=== PATIENT | female | born 1980 | race Hispanic/Latino ===

== ENCOUNTER → 2018-04-03 10:54 | Outpatient (CLI) | payer OTHER, SELFPAY | PROVIDERS: PCP Family Medicine; Visit Provider Family Medicine | DX: M25.561 Pain in right knee (principal) ==

== ENCOUNTER → 2018-04-17 07:59 | Outpatient (CLI) | payer OTHER, SELFPAY ==
--- NOTE | 2018-04-17 | DI.US.S_ITS ---
ULTRASOUND OF LEFT BREAST: 04/17/2018 CLINICAL: Focal left breast pain. Comparison is made to exam dated: 04/17/2018 [facility]. Ultrasound of the left breast was performed on the area of interest. Cabrera scale images of the real-time examination were reviewed. IMPRESSION: NEGATIVE There is no sonographic evidence of malignancy. There is no mammographic or sonographic abnormality seen in the left breast to correspond with the pain, however, clinical followup is recommended. A 1 year screening mammogram is recommended. This exam was interpreted at Station ID: [id number]. Electronically Signed By: Lachelle del cid/greer:04/17/2018 10:52:15 copy to: Job Arenas letter sent: Clinical Evaluation Ultrasound BI-RADS: 1 Negative
--- NOTE | 2018-04-17 | DI.RAD.S_ITS ---
PROCEDURE: XR KNEE RT 3V INDICATIONS: RIGHT KNEE PAIN TECHNIQUE: 3 views of the knee were acquired. COMPARISON: None. FINDINGS: Bones: No fractures or dislocations. No suspicious bony lesions. There are small marginal spurs over the lateral femoral condyle and posterior patella indicating early degenerative change. Soft tissues: No joint effusion. Small oval calcifications in the soft tissues anterior to the patellar tendon. IMPRESSION: 1. No joint effusion or acute bony abnormality. 2. Early degenerative joint disease. Dictated by: Todd Patel M.D. on 04/17/2018 at 10:19 Approved by: Todd Patel M.D. on 04/17/2018 at 10:22
--- NOTE | 2018-04-17 | DI.MG.S_ITS ---
BILATERAL DIGITAL DIAGNOSTIC MAMMOGRAM 3D/2D: 04/17/2018 CLINICAL: Left breast pain. Baseline exam. Family history of breast cancer. No prior exams were available for comparison. There are scattered fibroglandular elements in both breasts. No significant masses, calcifications, or other findings are seen in either breast. IMPRESSION: INCOMPLETE: NEEDS ADDITIONAL IMAGING EVALUATION There is no mammographic abnormality seen in the left breast to correspond with the pain, however, ultrasound is recommended. This exam was interpreted at Station ID: [id number]. NOTE: For mammograms, a report in lay terms will be sent to the patient. Approximately 15% of breast malignancies will not be visualized mammographically. In the management of a palpable breast mass, a negative mammogram must not discourage biopsy of a clinically suspicious lesion. Electronically Signed By: Lachelle del cid/greer:04/17/2018 08:56:09 copy to: Job Arenas letter sent: Additional Imaging Needed ACR BI-RADS Category 0: Incomplete [id number]
== END ==
PROVIDERS: PCP Family Medicine; Visit Provider Nurse Practitioner Family
DX: N64.4 Mastodynia (principal); M25.561 Pain in right knee
CPT/HCPCS: 73562; 76642; 77066; G0279

== ENCOUNTER → 2018-05-27 09:04 | Outpatient (CLI) | payer OTHER, SELFPAY ==
--- NOTE | 2018-05-27 | DI.RAD.S_ITS ---
PROCEDURE: XR ANKLE LT MIN 3V INDICATIONS: LATERAL LEFT ANKLE PAIN TECHNIQUE: 3 views of the ankle were acquired. COMPARISON: None. FINDINGS: Bones: No fractures or dislocations. Ankle mortise is normally aligned. No suspicious bony lesions. Soft tissues: No tibiotalar joint effusion. Achilles tendon appears normal. Lateral swelling. IMPRESSION: Soft tissue swelling, negative for fracture Dictated by: Todd Patel M.D. on 05/27/2018 at 9:29 Approved by: Todd Patel M.D. on 05/27/2018 at 9:31
== END ==
PROVIDERS: PCP Family Medicine; Visit Provider Nurse Practitioner Family
DX: M25.572 Pain in left ankle and joints of left foot (principal)
CPT/HCPCS: 73610

== ENCOUNTER → 2019-07-28 08:24 | Outpatient (CLI) | payer OTHER, SELFPAY ==
--- NOTE | 2019-07-28 | DI.MG.S_ITS ---
BILATERAL DIGITAL SCREENING MAMMOGRAM 3D/2D WITH CAD: 07/28/2019 CLINICAL: Routine screening. Family history of breast cancer. Comparison is made to exam dated: 04/17/2018 mammogram - [facility]. There are scattered fibroglandular elements in both breasts. Current study was also evaluated with a Computer Aided Detection (CAD) system. No significant masses, calcifications, or other findings are seen in either breast. There has been no significant interval change. IMPRESSION: NEGATIVE There is no mammographic evidence of malignancy. A 1 year screening mammogram is recommended. This exam was interpreted at Station ID: [id number]. NOTE: For mammograms, a report in lay terms will be sent to the patient. Approximately 15% of breast malignancies will not be visualized mammographically. In the management of a palpable breast mass, a negative mammogram must not discourage biopsy of a clinically suspicious lesion. Electronically Signed By: Oskar ramires/greer:07/28/2019 15:46:43 copy to: Job Arenas letter sent: Normal Exam ACR BI-RADS Category 1: Negative [id number]
== END ==
PROVIDERS: PCP Student in an Organized Health Care Education/Training Program; Visit Provider Student in an Organized Health Care Education/Training Program
DX: Z13.21 Encounter for screening for nutritional disorder (principal); Z80.3 Family history of malignant neoplasm of breast
CPT/HCPCS: 77063; 77067

== ENCOUNTER → 2019-09-21 08:48 | Outpatient (CLI) | payer OTHER, SELFPAY ==
--- NOTE | 2019-09-21 10:14 | DIET.PN ---
Diabetes Intake: Initial Assessment Assess: Ms. Mayer is a 38 YOF referred for type 2 diabetes. She was diagnosed in 2009 with an HgbA1c > 9.0. She lost 100 lbs x 2 yrs ago through diet and exercise and was able to get A1c down to 5.2. She has been on and off metformin for the last 5 years, complaining of severe side effects including diarrhea and abdominal burning/discomfort. She has not monitored her BG for several years. Admits to stress eating particularly at work. She works in a stressful environment where coworkers regularly bring in treats. Meds: Discontinued Metformin due to side effects Wt: 324lb Ht: 65in BMI: 53.9 (obese class III) Exercise: Weight lifting, [employer]: Altered nutrition related laboratory values related to impaired glucose metabolism, lack of previous exposure to nutrition information as evidenced by pt report, diagnosis of diabetes, previous diet high in refined carbohydrates. Intervention: 1.Completed intake assessment. Discussed barriers to care. 2.Discussed pathophysiology of diabetes. Reviewed A1c and its correlation to blood glucose numbers. Discussed recommended BG ranges. 3.Discussed importance of self-monitoring, how often, and when to check. 4.Reviewed hyper/hypoglycemia and treatment. 5.Reviewed safe disposal of equipment (strip/lancets/insulin needles). 6.Created SMART goals for pt self-care and success. 7.Discussed program curriculum outline and class needs based on individual goals. SMART Goals: 1. Pt would like to lose 15 lb (~5% BW) in the next 3 mo through dietary changes including counting carbohydrate and reading food labels increasing physical activity by walking for 30 min on her lunch break. 2. Pt would like to increase fitness stamina so that she can reach her goal of 27 laps in 5 min in roller derby by increasing her PA to 6 days/week alternating cardiovascular and resistance training. Monitor/Evaluate: Anticipate excellent compliance. Pt will attend full DSME program. Physiology class scheduled for Sep 28.
== END ==
PROVIDERS: PCP Student in an Organized Health Care Education/Training Program; Visit Provider Student in an Organized Health Care Education/Training Program
DX: E11.9 Type 2 diabetes mellitus without complications (principal); E66.9 Obesity, unspecified; Z68.43 Body mass index [BMI] 50.0-59.9, adult; Z71.3 Dietary counseling and surveillance
CPT/HCPCS: G0108

== ENCOUNTER → 2019-09-28 14:08 | Outpatient (CLI) | payer OTHER, SELFPAY ==
--- NOTE | 2019-09-28 16:23 | DIET.PN ---
Diabetes Progress Note Diabetes Physiology: Intervention 1. Diabetes physiology 2. Detecting and treatment of acute and chronic complications 3. Diagnosis of and difference in types of diabetes 4. Self-monitoring and pattern management a. Demonstrate use of glucometer and control testing b. Explain BG results and action to take when out of range. 5. Foot, eye, dental care 6. Medications a. Oral medication classification b. Injectable c. Insulin i. Injection protocol ii. Other delivery methods
== END ==
PROVIDERS: PCP Student in an Organized Health Care Education/Training Program; Visit Provider Student in an Organized Health Care Education/Training Program
DX: E11.9 Type 2 diabetes mellitus without complications (principal); Z71.3 Dietary counseling and surveillance
CPT/HCPCS: G0109

== ENCOUNTER → 2019-10-08 09:53 | Outpatient (CLI) | payer OTHER, SELFPAY | PROVIDERS: PCP Student in an Organized Health Care Education/Training Program; Visit Provider Student in an Organized Health Care Education/Training Program | DX: E11.9 Type 2 diabetes mellitus without complications (principal); Z71.3 Dietary counseling and surveillance | CPT/HCPCS: G0109 ==

== ENCOUNTER → 2019-11-09 14:09 | Outpatient (CLI) | payer OTHER, SELFPAY ==
--- NOTE | 2019-11-09 16:10 | DIET.PN ---
Diabetes: Healthy Eating 1 Intervention: ?Discussed pathophysiology of diabetes and impact of nutrition/diet on blood sugar control.? Discussed fed versus non-fed state.?? ?Reviewed importance of Balance, Variety, and Moderation. ?Discussed the effect of carbohydrates/protein/fat on blood sugar control.? ?Stressed importance of consistent carbohydrate intake at each meal and provided instructions for recommended servings/portions of carbohydrates/protein per meal. Provided educational material. ?Reviewed carbohydrate counting and measuring carbohydrate content via serving sizes and reading nutrition labels.? Provided handouts.?? ?Discussed the difference between simple versus complex carbohydrates and the effect of fiber on blood sugar control.? Discussed various methods to increase fiber content in diet. ?Discussed the plate method for creating more carbohydrate conscious balanced meals. ?Stressed importance of meal timing and not going >4-5 hours between meals. Encouraged adding protein to evening snack to support glucose control overnight. ?Discussed importance of making dietary habits part of lifestyle change.
== END ==
PROVIDERS: PCP Student in an Organized Health Care Education/Training Program; Visit Provider Student in an Organized Health Care Education/Training Program
DX: E11.9 Type 2 diabetes mellitus without complications (principal); Z71.3 Dietary counseling and surveillance
CPT/HCPCS: G0109

== ENCOUNTER 2020-02-28 00:57 | Emergency (ER) | payer OTHER, SELFPAY ==
[2020-02-28 01:08] VITALS: BP 128/72; PULSE 84; RESP 20; TEMP 36.6; O2SAT 99; BMI 53.6
--- NOTE | 2020-02-28 01:17 | DI.RAD.S_ITS ---
PROCEDURE: XR CHEST 1V INDICATIONS: SOB TECHNIQUE: One view of the chest was acquired. COMPARISON: [facility], CT, CT ANGIO CHEST PE PROTOCOL, 02/28/2020, 2:24. FINDINGS: Surgical changes and devices: None. Lungs and pleura: Lungs are clear. No pleural effusions or pneumothorax. Mediastinum: Mediastinal contours appear normal. Heart size is normal. Bones and chest wall: No suspicious bony lesions. Overlying soft tissues appear unremarkable. IMPRESSION: No acute pulmonary process. Dictated by: Jennifer Ga M.D. on 02/28/2020 at 9:01 Approved by: Jennifer Ga M.D. on 02/28/2020 at 9:04
--- NOTE | 2020-02-28 01:26 | ED_ITS ---
HPI - Chest Pain General Chief Complaint: Chest Pain Stated Complaint: severe abd/chest/back pain x24 hours Time Seen by Provider: 02/28/20 00:59 Source: patient Mode of arrival: Ambulatory Limitations: no limitations History of Present Illness HPI narrative: 39F nonsmoker with history of diabetes presents with vague symptoms including chest and back pain with deep breaths. She denies any fever or chills nor recent injury. She has had no recent travel, history of blood clot or cancer. She states the pain is sharp and stabbing and is made worse with a deep breath or motion but not exertion or any others. She is not dizzy nor weak or lightheaded. She has had no nausea or vomiting. She denies any change in bowel habits. She denies any dietary change or change in medications including [id number] supplements. She denies any history of the same. She states that she has episodes where this sharp pain starts in her anterior chest in will sometimes go to right shoulder and sometimes her neck. Related Data Home Medications Medication Instructions Recorded Confirmed cholecalciferol (vitamin D3) 5,000 unit PO #0 11/14/17 09/14/18 desogestrel-ethinyl estradiol 1 tab PO #0 11/14/17 09/14/18 [Reclipsen (28)] metformin [Glucophage] 250 mg AMAC #0 11/14/17 09/14/18 Previous Rx's Medication Instructions Recorded ketorolac 10 mg PO Q6H PRN #14 tab 02/28/20 Allergies Allergy/AdvReac Type Severity Reaction Status Date / Time From DEMEROL Allergy Unknown Uncoded 09/14/18 11:10 Review of Systems Constitutional Constitutional: Denies chills, Denies fatigue, Denies fever(s), Denies frequent falls, Denies lethargy and Denies weakness Eyes Eyes: Denies change in vision, Denies eye discharge, Denies irritation and Denies loss of vision ENT Ears, Nose, Mouth, and Throat: Denies change in voice, Denies dizziness, Denies neck pain, Denies sore throat and Denies throat swelling Cardiovascular Cardiovascular: Reports chest pain, Denies irregular heart rhythm, Denies lightheadedness, Denies palpitations, Denies dyspnea, Denies dyspnea on exertion and Denies orthopnea Respiratory Respiratory: Denies cough, Denies dyspnea, Denies dyspnea on exertion and Denies wheezing Gastrointestinal Gastrointestinal: Denies abdominal pain, Denies change in bowel habits, Denies diarrhea, Denies nausea and Denies vomiting Genitourinary Genitourinary: Denies hematuria, Denies flank pain, Denies urinary incontinence and Denies urinary urgency Musculoskeletal Musculoskeletal: Denies back pain, Denies muscle weakness, Denies neck pain, Denies numbness and Denies tingling Integumentary/Breasts Skin/Breast: Denies pruritus, Denies erythema, Denies rash and Denies wounds Neurologic Neurologic: Denies behavioral changes, Denies confusion, Denies dizziness, Denies frequent falls, Denies loss of vision, Denies numbness, Denies tingling and Denies weakness Psychiatric Psychiatric: Denies anxiety, Denies behavioral changes, Denies confusion, Denies depression, Denies homicidal ideation and Denies suicidal ideation Endocrine Endocrine: Denies fatigue, Denies flushing and Denies palpitations Hematologic/Lymphatic Hematologic/Lymphatic: Denies easy bruising Allergic/Immunologic Allergic/Immunologic: Denies urticaria, Denies throat swelling and Denies wheezing Patient History Social History Smoking Status: Never smoker eating out: 4 or more times/week Type(s) of exercise: weight lifting, resistance training and other Smoking Status: Never smoker alcohol intake frequency: 0-2 drinks per day Substance Use Type: does not use Exam Narrative Exam Narrative: GENERAL: [39] year old patient appears stated age. Well- nourished, well-developed patient, in mild distress. HEAD: Atraumatic. Normocephalic. EYES: Pupils equal round and reactive. Extraocular motions intact. No scleral icterus. No injection or drainage. ENT: Nose without bleeding, purulent drainage. Throat without erythema, tonsillar hypertrophy or exudate. Airway patent. NECK: Trachea midline. Non tender CARDIOVASCULAR: Regular rate and rhythm without murmurs, gallops, or rubs. Anterior chest pain tender to palpation RESPIRATORY: Clear to auscultation. Breath sounds equal bilaterally. No wheezes, rales, or rhonchi. GASTROINTESTINAL: Abdomen soft, non-tender, nondistended. EXTREMITIES: No edema or joint tenderness. BACK: Nontender without deformity or crepitance. No flank tenderness. NEURO: AOx3. SKIN: No rash or erythema of visible areas Initial Vital Signs Initial Vital Signs: Vital Signs Temperature 97.9 F 02/28/20 01:08 Pulse Rate 84 02/28/20 01:08 Respiratory Rate 20 02/28/20 01:08 Blood Pressure 128/72 02/28/20 01:08 Pulse Oximetry 99 02/28/20 01:08 Course Orders Ordered: Discontinued Medications Al Hydrox/Mg Hydrox/Simethicone 20 ml/ Lidocaine HCl 15 ml 0 ml PO NOW ONE Stop: 02/28/20 03:44 Last Admin: 02/28/20 03:50 Dose: 45 ml Documented by: GIOVANNY Sodium Chloride (Normal Saline 0.9%) 1,000 mls @ 150 mls/hr IV CONT MANUEL Last Infusion: 02/28/20 04:30 Dose: 0 mls/hr Documented by: Admin: 02/28/20 01:56 Dose: 150 mls/hr Documented by: GIOVANNY Ketorolac Tromethamine (Toradol) 15 mg IV NOW ONE Stop: 02/28/20 03:44 Last Admin: 02/28/20 03:50 Dose: 15 mg Documented by: GIOVANNY Vital Signs Vital signs: Vital Signs - 8 hr 02/28/20 01:08 02/28/20 02:30 02/28/20 04:16 Temperature 97.9 F Pulse Rate 84 77 76 Respiratory Rate 20 24 18 Blood Pressure 128/72 Blood Pressure [Right Arm] 119/56 L 108/53 L Pulse Oximetry 99 98 96 MDM - Chest Pain Lab Data Result diagrams: 02/28/20 01:40 02/28/20 01:40 Labs: Lab Results 02/28/20 02/28/20 02/28/20 Range/Units 01:40 01:40 01:40 WBC 13.3 H (4.5-11.0) X10^3/uL RBC 4.67 (4.0-5.2) X10^6/uL Hgb 12.9 (12.0-16.0) g/dL Hct 39.5 (36-46) % MCV 84.5 (80-100) fL MCH 27.7 (26-34) PG MCHC 32.8 (30-36) % RDW 13.8 (11.6-14.8) % Plt Count 353 (150-400) X10^3/uL Neut % (Auto) 60.6 (50-75) % Lymph % (Auto) 31.6 (25-40) % Freestone % (Auto) 4.9 (3-14) % Eos % (Auto) 1.6 L (2-4) % Baso % (Auto) 1.3 (0-2) % Neut # (Auto) 8000 H (0744-1610) /uL Lymph # (Auto) 4200 (8158-1226) /uL Freestone # (Auto) 700 (0-900) /uL Eos # (Auto) 200 (0-450) /uL Baso # (Auto) 200 H (0-100) /uL D-Dimer 251 H (<230) ng/mL Sodium (137-145) mmol/L Potassium (3.4-5.1) mmol/L Chloride (98-107) mmol/L Carbon Dioxide (22-32) mmol/L BUN (7-17) mg/dL Creatinine (0.52-1.04) mg/dL Estimated GFR (>60) mL/min BUN/Creatinine Ratio (6-22) Glucose (70-100) mg/dL Calcium (8.4-10.2) mg/dL Total Bilirubin (0.2-1.3) mg/dL AST (14-36) IU/L ALT (<35) IU/L Alkaline Phosphatase (38-126) U/L Total Creatine Kinase (30-135) U/L CK-MB (CK-2) CK-MB (CK-2) Rel Index Troponin I (0.01-0.034) ng/mL NT-Pro-B Natriuret Pep 54 (<125) pg/mL Total Protein (6.3-8.2) g/dL Albumin (3.5-5.0) g/dL Globulin (1.7-4.1) g/dL Albumin/Globulin Ratio (1.0-2.8) Lipase (23-300) U/L 02/28/20 02/28/20 Range/Units 01:40 01:40 WBC (4.5-11.0) X10^3/uL RBC (4.0-5.2) X10^6/uL Hgb (12.0-16.0) g/dL Hct (36-46) % MCV (80-100) fL MCH (26-34) PG MCHC (30-36) % RDW (11.6-14.8) % Plt Count (150-400) X10^3/uL Neut % (Auto) (50-75) % Lymph % (Auto) (25-40) % Freestone % (Auto) (3-14) % Eos % (Auto) (2-4) % Baso % (Auto) (0-2) % Neut # (Auto) (7563-3281) /uL Lymph # (Auto) (5983-4418) /uL Freestone # (Auto) (0-900) /uL Eos # (Auto) (0-450) /uL Baso # (Auto) (0-100) /uL D-Dimer (<230) ng/mL Sodium 135 L (137-145) mmol/L Potassium 4.1 (3.4-5.1) mmol/L Chloride 101 (98-107) mmol/L Carbon Dioxide 29 (22-32) mmol/L BUN 18 H (7-17) mg/dL Creatinine 0.76 (0.52-1.04) mg/dL Estimated GFR > 60.0 (>60) mL/min BUN/Creatinine Ratio 23.7 H (6-22) Glucose 139 H (70-100) mg/dL Calcium 9.2 (8.4-10.2) mg/dL Total Bilirubin 0.3 (0.2-1.3) mg/dL AST 28 (14-36) IU/L ALT 26 (<35) IU/L Alkaline Phosphatase 85 (38-126) U/L Total Creatine Kinase 56 62 (30-135) U/L CK-MB (CK-2) TNP TNP CK-MB (CK-2) Rel Index TNP TNP Troponin I < 0.012 < 0.012 (0.01-0.034) ng/mL NT-Pro-B Natriuret Pep (<125) pg/mL Total Protein 7.5 (6.3-8.2) g/dL Albumin 3.9 (3.5-5.0) g/dL Globulin 3.6 (1.7-4.1) g/dL Albumin/Globulin Ratio 1.1 (1.0-2.8) Lipase 36 (23-300) U/L Imaging Data Chest x-ray: Radiologist's Impression: No acute process CT scan - chest: Radiologist's Impression: No PE, pneumonia or PTX ECG Data Attestation: I personally reviewed and interpreted this ECG as follows: Interpretation: EKG is normal sinus rhythm rate [ 88] and free of any signs of ischemia or ectopy. No ST segmental elevation or depression. No T wave inversions Discharge Plan Departure Patient Disposition: Home Clinical Impression: Atypical chest pain Discharge Date/Time: 02/28/20 04:40 Instructions: DI for Atypical Chest Pain Activity Restrictions/Additional Instructions: *You have been diagnosed with [atypical chest pain. Labs and imaging considered heart attack, blood clot, pneumonia and other concerning symptoms] *What to do: *Take medications as directed *Follow up with your primary care provider in 2-3 days, call for an appointment. Let them know you were seen in the Emergency Department and that we ask that you be seen in follow up *Return to ER if you should have any new, worsening or concerning symptoms Prescriptions: New ketorolac 10 mg tablet 10 mg PO Q6H PRN (Reason: pain) Qty: 14 RF: 0 No Action metformin [Glucophage] 500 MG tablet 250 mg AMAC Qty: 0 RF: 0 desogestrel-ethinyl estradiol [Reclipsen (28)] 1 EACH tablet 1 tab PO Qty: 0 RF: 0 cholecalciferol (vitamin D3) 5,000 UNIT capsule 5,000 unit PO Qty: 0 RF: 0 Referrals: Lisa Garcia MD [Primary Care Provider] -
[2020-02-28 01:52] LABS: Add Manual Diff / Slide Review NO; Basophils Absolute Auto 200 /uL (0-100); Basophils Percent Auto 1.3 % (0-2); Eosinophils Absolute Auto 200 /uL (0-450); Eosinophils Percent Auto 1.6 % (2-4); Hematocrit 39.5 % (36-46); Hemoglobin 12.9 g/dL (12.0-16.0); Lymphocytes Absolute Auto 4200 /uL (1100-4500); Lymphocytes Percent Auto 31.6 % (25-40); Mean Corpuscular HGB Conc 32.8 % (30-36); Mean Corpuscular Hemoglobin 27.7 PG (26-34); Mean Corpuscular Volume 84.5 fL (80-100); Monocytes Absolute Auto 700 /uL (0-900); Monocytes Percent Auto 4.9 % (3-14); Neutrophils Absolute Auto 8000 /uL (1500-7000); Neutrophils Percent Auto 60.6 % (50-75); Platelet Count 353 X10^3/uL (150-400); Red Blood Cell Count 4.67 X10^6/uL (4.0-5.2); Red Cell Distribution Width 13.8 % (11.6-14.8); White Blood Cell Count 13.3 X10^3/uL (4.5-11.0)
[2020-02-28] MEDS: SODIUM CHLORIDE 0.9% 1,000 ML 150 ML IV (01:56)
[2020-02-28 02:01] LABS: Alanine Aminotransferase 26 IU/L (<35); Albumin 3.9 g/dL (3.5-5.0); Albumin Globulin Ratio 1.1 (1.0-2.8); Alkaline Phosphatase 85 U/L (38-126); Aspartate Aminotransferase 28 IU/L (14-36); BUN Creatinine Ratio 23.7 (6-22); Bilirubin Total 0.3 mg/dL (0.2-1.3); Blood Urea Nitrogen 18 mg/dL (7-17); Calcium 9.2 mg/dL (8.4-10.2); Carbon Dioxide 29 mmol/L (22-32); Chloride 101 mmol/L (98-107); Creatine Kinase 56 U/L (30-135); Estimated Glomerular Filt Rate > 60.0 mL/min (>60); Globulin 3.6 g/dL (1.7-4.1); Glucose 139 mg/dL (70-100); HEMOLYSIS < 15 (0-50); Lipase 36 U/L (23-300); Potassium 4.1 mmol/L (3.4-5.1); Sodium 135 mmol/L (137-145); Total Protein 7.5 g/dL (6.3-8.2)
[2020-02-28 02:10] LABS: NT-proBNP (BNP-Adult 18+) 54 pg/mL (<125)
[2020-02-28 02:13] LABS: Troponin I < 0.012 ng/mL (0.01-0.034)
[2020-02-28 02:21] LABS: D Dimer 251 ng/mL (<230)
--- NOTE | 2020-02-28 02:26 | DI.CT.S_ITS ---
PROCEDURE: CT ANGIO CHEST PE PROTOCOL INDICATIONS: CP, SOB, difficulty breathing, elevated DDimer TECHNIQUE: After the administration of intravenous contrast, 2 mm thick sections acquired from the pulmonary apices to the posterior costophrenic angles. 3-dimensional maximum intensity projection (MIP) coronal and sagittal reformats were then acquired through the thorax. For radiation dose reduction, the following was used: automated exposure control, adjustment of mA and/or kV according to patient size. COMPARISON: None. FINDINGS: Image quality: Excellent. Pulmonary arteries: Pulmonary arteries are normal in size, and demonstrate no intraluminal filling defects to suggest central pulmonary embolism. Lungs and pleura: Lungs are clear. No pleural effusions or pneumothorax. Central and peripheral airways are patent. Mediastinum: Heart size is normal, without pericardial effusion. No mediastinal or hilar adenopathy. Thoracic aorta is normal in caliber and enhancement. Esophagus is normal in caliber. There is a small hiatal hernia. Bones and chest wall: No suspicious bony lesions. Ribs and thoracic spine appear intact throughout. Thyroid gland is normal. Multiple small subcentimeter lymph nodes in axillae bilaterally. Abdomen: Visualized upper abdominal solid organs appear normal in the early arterial phase of enhancement. IMPRESSION: 1. No evidence for pulmonary embolism. 2. Small hiatal hernia. 3. Numerous shotty axillary lymph nodes bilaterally, most likely reactive. No significant discrepancy with the manager shift radiology preliminary report. Dictated by: Saul Wolf M.D. on 02/28/2020 at 8:03 Approved by: Saul Wolf M.D. on 02/28/2020 at 8:07
[2020-02-28 02:30] VITALS: BP 119/56; PULSE 77; RESP 24; O2SAT 98
[2020-02-28] MEDS: MAG HYDROX/ALUMINUM/SIMETH SUS 20 ML, LIDOCAINE VISCOUS 2% 15 ML PO (03:50)
[2020-02-28] MEDS: KETOROLAC 60 MG/2 ML VIAL 15 MG IV (03:50)
[2020-02-28 04:16] VITALS: BP 108/53; PULSE 76; RESP 18; O2SAT 96
[2020-02-28 04:35] LABS: Creatine Kinase 62 U/L (30-135)
[2020-02-28 04:48] LABS: Troponin I < 0.012 ng/mL (0.01-0.034)
== END 2020-02-28 04:40 | disposition home or self-care (01) ==
PROVIDERS: Emergency Provider Emergency Medicine; PCP Student in an Organized Health Care Education/Training Program
DX: R07.89 Other chest pain (principal); R10.9 Unspecified abdominal pain; E11.9 Type 2 diabetes mellitus without complications
CPT/HCPCS: 36415; 71045; 71275; 80053; 82550; 83690; 83880; 84484; 85025; 85379; 93005; 96361; 96374; 99284; 99285; J1885; Q9967

== ENCOUNTER → 2020-03-01 08:31 | Outpatient (CLI) | payer OTHER, SELFPAY ==
[2020-03-01 09:44] LABS: Hemoglobin A1C% w Est Avg Glu 6.6 % (4.0-6.0)
[2020-03-01 09:46] LABS: D Dimer 211 ng/mL (<230)
[2020-03-01 09:47] LABS: Alanine Aminotransferase 35 IU/L (<35); Albumin Globulin Ratio 1.1 (1.0-2.8); Alkaline Phosphatase 76 U/L (38-126); Aspartate Aminotransferase 32 IU/L (14-36); BUN Creatinine Ratio 19.7 (6-22); Bilirubin Total 0.5 mg/dL (0.2-1.3); Blood Urea Nitrogen 13 mg/dL (7-17); Calcium 9.2 mg/dL (8.4-10.2); Carbon Dioxide 30 mmol/L (22-32); Chloride 100 mmol/L (98-107); Cholesterol 179 mg/dL (140-199); Estimated Glomerular Filt Rate > 60.0 mL/min (>60); Globulin 3.8 g/dL (1.7-4.1); Glucose 129 mg/dL (70-100); HDL Cholesterol 32 mg/dL (40-60); HEMOLYSIS < 15 (0-50); LDL Cholesterol Calculated 117 mg/dL (<100); Sodium 138 mmol/L (137-145); Total Protein 7.8 g/dL (6.3-8.2); Triglycerides 151 mg/dL (35-150)
[2020-03-01 10:44] LABS: Creatinine Urine Random 51.9 mg/dL
[2020-03-01 10:51] LABS: Microalbumi Creatinin Ratio Ur 11.5 ug/mg CR (<30); Microalbumin Urine Random < 0.6 mg/dL (0-1.6)
== END ==
PROVIDERS: PCP Student in an Organized Health Care Education/Training Program; Referring Provider Student in an Organized Health Care Education/Training Program; Visit Provider Student in an Organized Health Care Education/Training Program
DX: E11.9 Type 2 diabetes mellitus without complications (principal); R79.89 Other specified abnormal findings of blood chemistry
CPT/HCPCS: 36415; 80053; 80061; 82043; 82570; 83036; 85379

== ENCOUNTER → 2020-05-04 07:57 | Outpatient (CLI) | payer OTHER, SELFPAY ==
--- NOTE | 2020-05-04 09:22 | PM.TREADMILL ---
Cardiac Stress Test Report Referral & Results Date Patient Seen: 05/04/20 Time Patient Seen: 09:23 Requesting provider: Lisa Garcia Indication: chest pain Rest ECG: sinus rhythm Procedure Note: Standard Sergei protocol 7:14 7.3 METS KAVON +19% slightly reduced exercise capacity. Normal hemodynamic response to exercise. No chest pain or anginal symptoms. Resting ECG normal, no ST shifts or arrhythmias. Impression: Normal exercise stress test Please note: Actual ECG tracings can be found in the PACS system.
== END ==
PROVIDERS: PCP Student in an Organized Health Care Education/Training Program; Referring Provider Student in an Organized Health Care Education/Training Program; Visit Provider Student in an Organized Health Care Education/Training Program
DX: R07.9 Chest pain, unspecified (principal)
CPT/HCPCS: 93017

== ENCOUNTER → 2020-06-14 07:53 | Outpatient (ROUT) | payer OTHER, SELFPAY ==
[2020-06-14 08:10] LABS: D Dimer 218 ng/mL (<230)
== END ==
PROVIDERS: PCP Student in an Organized Health Care Education/Training Program; Visit Provider Student in an Organized Health Care Education/Training Program
DX: R79.89 Other specified abnormal findings of blood chemistry (principal)
CPT/HCPCS: 85379

== ENCOUNTER → 2021-12-13 08:06 | Outpatient (CLI) | payer OTHER, SELFPAY ==
[2021-12-13 09:07] LABS: Add Manual Diff / Slide Review NO; Basophils Absolute Auto 0 /uL (0-100); Basophils Percent Auto 0.5 % (0-2); Eosinophils Absolute Auto 200 /uL (0-450); Eosinophils Percent Auto 1.5 % (2-4); Hematocrit 39.2 % (36-46); Hemoglobin 13.2 g/dL (12.0-16.0); Lymphocytes Absolute Auto 3900 /uL (1100-4500); Lymphocytes Percent Auto 39.2 % (25-40); Mean Corpuscular HGB Conc 33.7 % (30-36); Mean Corpuscular Hemoglobin 29.1 PG (26-34); Mean Corpuscular Volume 86.5 fL (80-100); Monocytes Absolute Auto 500 /uL (0-900); Monocytes Percent Auto 4.9 % (3-14); Neutrophils Absolute Auto 5400 /uL (1500-7000); Neutrophils Percent Auto 53.9 % (50-75); Platelet Count 321 X10^3/uL (150-400); Red Blood Cell Count 4.54 X10^6/uL (4.0-5.2); Red Cell Distribution Width 13.4 % (11.6-14.8)
[2021-12-13 09:26] LABS: D Dimer 568 ng/mL (<230)
[2021-12-13 09:30] LABS: Alanine Aminotransferase 25 IU/L (<35); Albumin 3.9 g/dL (3.5-5.0); Albumin Globulin Ratio 1.3 (1.0-2.8); Alkaline Phosphatase 66 U/L (38-126); Aspartate Aminotransferase 23 IU/L (14-36); BUN Creatinine Ratio 17.6 (6-22); Bilirubin Total 0.6 mg/dL (0.2-1.3); Blood Urea Nitrogen 12 mg/dL (7-17); C-Reactive Protein Quant 1.6 mg/dL (<1.0); Calcium 9.1 mg/dL (8.4-10.2); Carbon Dioxide 31 mmol/L (22-32); Chloride 102 mmol/L (98-107); Cholesterol 164 mg/dL (140-199); Estimated Glomerular Filt Rate > 60.0 mL/min (>60); Globulin 2.9 g/dL (1.7-4.1); Glucose 122 mg/dL (70-100); HDL Cholesterol 39 mg/dL (40-60); HEMOLYSIS < 15 (0-50); LDL Cholesterol Calculated 98 mg/dL (<100); Potassium 4.2 mmol/L (3.4-5.1); Sodium 137 mmol/L (137-145); Total Protein 6.8 g/dL (6.3-8.2); Triglycerides 133 mg/dL (35-150)
[2021-12-13 09:37] LABS: Erythrocyte Sedimentation Rate 16 MM/HR (0-20)
== END ==
PROVIDERS: Referring Provider Student in an Organized Health Care Education/Training Program; Visit Provider Student in an Organized Health Care Education/Training Program
DX: R07.9 Chest pain, unspecified (principal); E11.9 Type 2 diabetes mellitus without complications
CPT/HCPCS: 36415; 80053; 80061; 84443; 85025; 85379; 85651; 86140

== ENCOUNTER → 2022-01-04 10:50 | Outpatient (CLI) | payer OTHER, SELFPAY ==
--- NOTE | 2022-01-04 | DI.CT.S_ITS ---
PROCEDURE: CT ANGIO CHEST INDICATIONS: abnormal blood chemistry/chest pain TECHNIQUE: After the administration of intravenous contrast, 2 mm thick sections acquired from the pulmonary apices to the posterior costophrenic angles. 3-dimensional maximum intensity projection (MIP) coronal and sagittal reformats were then acquired through the thorax. For radiation dose reduction, the following was used: automated exposure control, adjustment of mA and/or kV according to patient size. COMPARISON: [facility], CT, CT ANGIO CHEST PE PROTOCOL, 02/28/2020, 2:24. FINDINGS: Image quality: Excellent. Pulmonary arteries: Pulmonary arteries are normal in size, and demonstrate no intraluminal filling defects to suggest central pulmonary embolism. Lungs and pleura: Minimal scar involving the right fissure (5-103). No consolidation, pleural effusions or pneumothorax. No suspicious pulmonary nodule or mass. Central and peripheral airways are patent. Mediastinum: Heart size is normal, without pericardial effusion. No mediastinal or hilar adenopathy. Thoracic aorta is normal in caliber and enhancement. Esophagus is normal in caliber. Trace hiatal hernia. Bones and chest wall: No suspicious bony lesions. Ribs and thoracic spine appear intact throughout. Thyroid gland demonstrates homogeneous attenuation. No axillary or supraclavicular adenopathy. Abdomen: Visualized upper abdominal solid organs appear normal in the early arterial phase of enhancement. IMPRESSION: 1. No CT evidence of pulmonary embolism or significant interval change. Dictated by: Edd Cheng M.D. on 01/04/2022 at 11:26 Approved by: Edd Cheng M.D. on 01/04/2022 at 11:37
== END ==
PROVIDERS: PCP Student in an Organized Health Care Education/Training Program; Referring Provider Student in an Organized Health Care Education/Training Program; Visit Provider Student in an Organized Health Care Education/Training Program
DX: R07.9 Chest pain, unspecified (principal); R79.89 Other specified abnormal findings of blood chemistry
CPT/HCPCS: 71275; Q9967

== ENCOUNTER → 2022-01-16 14:46 | Outpatient (CLI) | payer OTHER, SELFPAY ==
--- NOTE | 2022-01-16 | DI.NM.S_ITS ---
PROCEDURE: NM EXERCISE TREADMILL NON NUC COMPARISON: None. INDICATIONS: Chest pain, unspecified FINDINGS: The patient exercised for 6 minutes and 41 seconds reaching 6.7 METs, KAVON +25%. 98% of maximum predicted heart rate achieved. Appropriate BP response to exercise (resting BP 142/82mmHg, max BP 178/98mmHg). No ST changes or ectopy during the study. No angina during the study. IMPRESSION: Low risk, normal treadmill ECG only stress test with reduced exercise tolerance (KAVON +25%). Target heart rate achieved. No angina during the study. Dictated by: Sara Preciado MD on 01/17/2022 at 15:02 Approved by: Sara Preciado MD on 01/17/2022 at 15:03
--- NOTE | 2022-01-16 15:43 | PM.TREADMILL ---
Cardiac Stress Test Report Referral & Results Date Patient Seen: 01/16/22 Time Patient Seen: 15:43 Requesting provider: Lisa Garcia Indication: Chest pain Rest ECG: Sinus rhythm Procedure Note: Standard Sergei protocol, 6:41, 6.7 mets Reduced exercise capacity, KAVON +25% Normal hemodynamic response to exercise, hypertensive at baseline; accelerated heart rate response to exercise No significant ST changes at peak exercise No ectopy Impression: Normal exercise stress test Please note: Actual ECG tracings can be found in the PACS system.
== END ==
PROVIDERS: PCP Student in an Organized Health Care Education/Training Program; Referring Provider Student in an Organized Health Care Education/Training Program; Visit Provider Student in an Organized Health Care Education/Training Program
DX: R07.9 Chest pain, unspecified (principal); R79.89 Other specified abnormal findings of blood chemistry
CPT/HCPCS: 93016; 93017; 93018

== ENCOUNTER → 2022-01-18 11:34 | Outpatient (CLI) | payer OTHER, SELFPAY ==
[2022-01-18 12:48] LABS: COVID19 -Nasal RAPID Negative (Negative)
== END ==
PROVIDERS: PCP Student in an Organized Health Care Education/Training Program; Visit Provider Family Medicine Sleep Medicine
DX: Z20.822 Contact with and (suspected) exposure to COVID-19 (principal)
CPT/HCPCS: 87635; C9803

== ENCOUNTER → 2022-01-21 07:33 | Outpatient (CLI) | payer OTHER, SELFPAY ==
--- NOTE | 2022-01-21 | DI.ECHO.S_ITS ---
[facility]+ [facility] +---------+ : : [address] : : : : [id number] : : : : Phone: [phone]+ Echocardiogram Report + + :Name: JACKY BOWMAN Study Date: 01/21/2022 Height: 65 in : :[facility] ReadingLocation: Weight: 327 lb : : Gender: Female BSA: 2.4 m2 : :: 1980 Age: 41 yrs BP: 124/87 mmHg: :Reason For Study: ABNORMAL BLOOD CHEMISTRY : :Ordering Physician: DWIGHT, : :DEE DEE Performed By: Ina Sheriff : :Referring: DEE DEE QUINTANILLA : + + Interpretation Summary The ejection fraction is estimated to be 60-65%. There is mild tricuspid regurgitation. The right ventricular systolic pressure is estimated to be at least 25 mmHg based on an estimated right atrial pressure of 3 mm Hg. There is no pericardial effusion. Procedure: A two-dimensional transthoracic echocardiogram with color flow and Doppler was performed. The study quality was technically adequate. There is no prior echocardiogram noted for this patient. The patient was in sinus bradycardia with heart rates between 52-67 bpm during the exam. Left Ventricle: The left ventricle is normal in size and wall thickness. The ejection fraction is estimated to be 60-65%. Left ventricular wall motion is normal. Right Ventricle: The right ventricle is normal in size and function. Atria: The left atrial size is normal. Right atrial size is normal. There is no Doppler evidence for an interatrial shunt. Mitral Valve: The mitral valve is normal in structure and function. There is trace mitral regurgitation. Aortic Valve: The aortic valve is trileaflet. The aortic valve opens well. There is no aortic valve stenosis. No aortic regurgitation is present. Tricuspid Valve: The tricuspid valve is normal in structure and function. There is mild tricuspid regurgitation. The right ventricular systolic pressure is estimated to be at least 25 mmHg based on an estimated right atrial pressure of 3 mm Hg. Pulmonic Valve: The pulmonic valve is not well visualized. There is no pulmonic valvular regurgitation. Great Vessels: The aortic root is normal size. The dimensions of the ascending aorta are normal. The IVC is of normal diameter and collapses greater than 50% with a sniff. This suggests a low right atrial pressure of 3 mm Hg. Pericardium/ Pleura There is no pericardial effusion. There is no pleural effusion. MMode/2D Measurements & Calculations LVIDd: 5.7 cm LVOT diam: 2.1 cm LVIDs: 3.7 cm Ao root diam: 3.1 cm FS: 35.7 % Ao Arch Diam (Prox Trans): 2.6 cm IVSd: 0.74 cm LVPWd: 0.64 cm LV urrutia. diameter/BSA (cm/m^2): 2.3 LV sys. diameter/BSA (cm/m^2): 1.5 LA A2 area: 20.3 cm2 RA long axis: 4.8 cm LA A4 area: 18.5 cm2 RA area: 16.7 cm2 LA length (vol): 5.3 cm RA vol: 49.4 ml LA vol: 59.7 ml RA : 20.3 ml/m2 LA vol index: 24.5 ml/m2 IVC diam: 1.4 cm RVD1 (basal): 3.9 cm TAPSE: 2.0 cm Doppler Measurements & Calculations Ao V2 max: 144.7 cm/sec LVOT Max Sunny: 102.8 cm/sec Ao V2 mean: 99.8 cm/sec LV V1 max P.2 mmHg Ao max P.4 mmHg LV V1 VTI: 24.9 cm Ao mean P.5 mmHg HERACLIO(I,D): 2.6 cm2 Ao V2 VTI: 33.4 cm HERACLIO(V,D): 2.5 cm2 sev ratio: 0.75 HERACLIO indexed to BSA (cm^2/m^2): 1.1 MV E max sunny: 96.8 cm/sec TR max sunny: 233.6 cm/sec MV A max sunny: 58.7 cm/sec TR max P.8 mmHg MV E/A: 1.6 PA V2 max: 104.9 cm/sec Med Peak E' Sunny: 7.5 cm/sec PA V2 mean: 75.9 cm/sec E/E' med: 12.9 PA mean P.5 mmHg Lat Peak E' Sunny: 12.4 cm/sec PA pr(Accel): 25.9 mmHg E/E' lat: 7.8 E/e' average: 10.3 MV dec time: 0.27 sec SV(LVOT): 86.1 ml Reading Physician:02:10 PM
== END ==
PROVIDERS: PCP Student in an Organized Health Care Education/Training Program; Referring Provider Student in an Organized Health Care Education/Training Program; Visit Provider Student in an Organized Health Care Education/Training Program
DX: R07.9 Chest pain, unspecified (principal); R79.89 Other specified abnormal findings of blood chemistry; I07.1 Rheumatic tricuspid insufficiency
CPT/HCPCS: 93306

== ENCOUNTER → 2022-04-30 17:18 | Outpatient (CLI) | payer OTHER, SELFPAY ==
[2022-04-30 17:49] LABS: D Dimer < 200 ng/mL (<230)
[2022-04-30 17:55] LABS: Alanine Aminotransferase 38 IU/L (<35); Albumin Globulin Ratio 1.2 (1.0-2.8); Alkaline Phosphatase 63 U/L (38-126); Aspartate Aminotransferase 32 IU/L (14-36); BUN Creatinine Ratio 12.7 (6-22); Bilirubin Total 0.6 mg/dL (0.2-1.3); Blood Urea Nitrogen 8 mg/dL (7-17); Calcium 8.7 mg/dL (8.4-10.2); Carbon Dioxide 28 mmol/L (22-32); Chloride 100 mmol/L (98-107); Estimated Glomerular Filt Rate > 60 mL/min (>60); Globulin 3.4 g/dL (1.7-4.1); Glucose 127 mg/dL (70-100); HEMOLYSIS < 15 (0-50); Lipase 24 U/L (23-300); Potassium 4.1 mmol/L (3.4-5.1); Sodium 137 mmol/L (137-145); Total Protein 7.4 g/dL (6.3-8.2)
[2022-04-30 18:06] LABS: Add Manual Diff / Slide Review NO; Basophils Absolute Auto 0 /uL (0-100); Basophils Percent Auto 0.3 % (0-2); Eosinophils Absolute Auto 100 /uL (0-450); Eosinophils Percent Auto 0.9 % (2-4); Hematocrit 38.4 % (36-46); Hemoglobin 13.2 g/dL (12.0-16.0); Lymphocytes Absolute Auto 4800 /uL (1100-4500); Lymphocytes Percent Auto 38.8 % (25-40); Mean Corpuscular HGB Conc 34.4 % (30-36); Mean Corpuscular Hemoglobin 29.6 PG (26-34); Mean Corpuscular Volume 85.9 fL (80-100); Monocytes Absolute Auto 600 /uL (0-900); Monocytes Percent Auto 4.9 % (3-14); Neutrophils Absolute Auto 6800 /uL (1500-7000); Neutrophils Percent Auto 55.1 % (50-75); Platelet Count 321 X10^3/uL (150-400); Red Blood Cell Count 4.47 X10^6/uL (4.0-5.2); Red Cell Distribution Width 13.1 % (11.6-14.8); White Blood Cell Count 12.3 X10^3/uL (4.5-11.0)
[2022-04-30 18:28] LABS: TSH w/ Reflex to FT4 2.04 uIU/mL (0.47-4.68)
== END ==
PROVIDERS: PCP Student in an Organized Health Care Education/Training Program; Referring Provider Student in an Organized Health Care Education/Training Program; Visit Provider Student in an Organized Health Care Education/Training Program
DX: R10.9 Unspecified abdominal pain (principal)
CPT/HCPCS: 36415; 80053; 83690; 84443; 85025; 85379

== ENCOUNTER → 2022-05-15 12:25 | Outpatient (CLI) | payer OTHER, SELFPAY ==
[2022-05-15 13:32] LABS: BUN Creatinine Ratio 12.9 (6-22); Blood Urea Nitrogen 12 mg/dL (7-17); Calcium 8.7 mg/dL (8.4-10.2); Carbon Dioxide 32 mmol/L (22-32); Chloride 101 mmol/L (98-107); Estimated Glomerular Filt Rate > 60 mL/min (>60); Glucose 123 mg/dL (70-100); HEMOLYSIS < 15 (0-50); Potassium 3.9 mmol/L (3.4-5.1); Sodium 139 mmol/L (137-145)
== END ==
PROVIDERS: PCP Student in an Organized Health Care Education/Training Program; Referring Provider Student in an Organized Health Care Education/Training Program; Visit Provider Student in an Organized Health Care Education/Training Program
DX: R10.9 Unspecified abdominal pain (principal); R06.02 Shortness of breath
CPT/HCPCS: 36415; 80048

== ENCOUNTER → 2022-05-16 08:36 | Outpatient (CLI) | payer OTHER, SELFPAY ==
--- NOTE | 2022-05-16 | DI.CT.S_ITS ---
PROCEDURE: CT CHEST ABD PEL W CON INDICATIONS: SHORTNESS OF BREATH/ABDOMINAL PAIN TECHNIQUE: After the administration of oral and intravenous contrast, axial sections acquired from the supraclavicular neck to the pubic symphysis. Coronal and sagittal reformats were performed. For radiation dose reduction, the following was used: automated exposure control, adjustment of mA and/or kV according to patient size. COMPARISON: [facility], CT, CT ANGIO CHEST, 01/04/2022, 11:04. FINDINGS: Image quality: Excellent. CHEST: Lower Neck: No enlarged lymph nodes. Thyroid: Within normal limits. Axillae: No enlarged lymph nodes. Chest Wall: Unremarkable. Lungs and Airways: Stable 3 mm pulmonary nodule, right lung base, image 2003/. No consolidation or suspicious nodules. Pleura: No pneumothorax or pleural effusions. Heart: Heart size is normal. No pericardial effusion. Thoracic Vessels: The aorta and pulmonary arteries demonstrate normal size. Mediastinum and Nupur: No enlarged lymph nodes. Esophagus: Small hiatal hernia. Question polypoid intraluminal mass measuring 1.6 cm at the GE junction. Direct visualization is recommended. ABDOMEN: Liver: Unremarkable. Gallbladder: Surgically absent Biliary ducts: Unremarkable. Pancreas: Unremarkable. Spleen: Unremarkable. Adrenal Glands: Unremarkable. Kidneys and Ureters: Unremarkable. Stomach and Bowel: Stomach, small bowel loops, and colon are unremarkable. Peritoneum: No abnormal intraperitoneal fluid. No free air. Ventral Wall: No hernia. Abdominal Nodes: No retroperitoneal or mesenteric adenopathy by size criteria. Vessels: Aorta and inferior vena cava are normal in size. PELVIS: Pelvic Organs: Unremarkable. IUD present in uterus. Bladder: Unremarkable. Pelvic Nodes: No enlarged lymph nodes. Miscellaneous: No inguinal hernias are seen. Bones: Unremarkable. IMPRESSION: 1. Small hiatal hernia 2. Question polypoid intraluminal mass measuring 1.6 cm at the GE junction. 3. Stable small right basilar pulmonary nodule. 4. Otherwise unremarkable CT of the chest, abdomen, and pelvis. Comment: Recommend direct visualization of the GE junction region utilizing upper endoscopy to exclude a polypoid luminal mass. Dictated by: Olvin Marquez M.D. on 05/16/2022 at 11:04 Approved by: Olvin Marquez M.D. on 05/16/2022 at 11:15
== END ==
PROVIDERS: PCP Student in an Organized Health Care Education/Training Program; Referring Provider Student in an Organized Health Care Education/Training Program; Visit Provider Student in an Organized Health Care Education/Training Program
DX: R06.02 Shortness of breath (principal); R10.9 Unspecified abdominal pain; R91.1 Solitary pulmonary nodule; K44.9 Diaphragmatic hernia without obstruction or gangrene; Z90.49 Acquired absence of other specified parts of digestive tract
CPT/HCPCS: 71260; 74177; Q9967

== ENCOUNTER 2022-06-04 13:28 | Day surgery (SDC) | payer OTHER, SELFPAY ==
--- NOTE | 2022-06-04 | PATH_ITS ---
[facility] Accession Number: [id number] No. of containers..01 Tissue . 01 Material submitted: . esophagus, E-G Junction - GE JUNCTION BIOPSY . 01 Diagnosis: Gastroesophageal Junction, Biopsy: Squamous mucosa with no diagnostic abnormality. Intraepithelial eosinophils are not increased. Negative for dysplasia and malignancy. V 06/06/2022 1401 Local . 01 Electronically signed: . Love Nguyen MD, Pathologist NPI- [id number] . 01 Gross description: . Received in formalin in a specimen container labeled with the patient's name, medical record number, and GE junction biopsy is a single pink soft tissue fragment that measures 0.3 x 0.2 x 0.2 cm. The specimen is entirely submitted in cassette A1. ([id number]) /V 06/05/2022 1838 Local . 01 Pathologist provided ICD-10: K22.89 . 01 CPT . 372289 Specimen Comment: A courtesy copy of this report has been sent to [phone] Performed at: 01 [facility] [address] [place] [address], [place], [place] [id number] MD Oskar Villar MD Phone: [phone]
[2022-06-04 14:17] VITALS: BP 122/70; PULSE 60; RESP 18; TEMP 36.4; O2SAT 100; BMI 53.3
--- NOTE | 2022-06-04 14:35 | PM.PREOP ---
Pre-operative Note Interval Note History & Physical reviewed/Exam performed by Physician: Yes Changes to H&P: No
[2022-06-04 14:44] LABS: COVID19 -Nasal RAPID Negative (Negative)
[2022-06-04] MEDS: LACTATED RINGERS 1,000 ML 150 ML IV (14:47)
[2022-06-04] MEDS: LIDOCAINE 4% SOLN 50 ML 20 ML TOP (15:15)
[2022-06-04] MEDS: fentaNYL 250 MCG/5 ML INJ 100 MCG IV (15:16)
[2022-06-04] MEDS: MIDAZOLAM 5 MG/5 ML VIAL 7 MG IV (15:18)
--- NOTE | 2022-06-04 15:26 | PM.OP.EGD ---
Operative Date/Time/Diagnoses Date of procedure: 06/04/22 Time of procedure: 15:26 Pre-op diagnosis: Incidental esophageal mass Post-op diagnosis: same Procedure & Clinicians Study performed: Esophagoduodenoscopy with biopsy Same procedure as scheduled: Yes Indications: Incidental mass at the GE junction on imaging appeared GE junction Surgeon: Taz Mclean Procedure Notes Procedure in detail: Patient placed in left lateral decubitus position. Time out was performed. Procedural sedation was administered with Versed and Fentanyl. A bite block was placed. the scope was inserted into the mouth and advanced through the esophagus and into the stomach. The pylorus was intubated and the duodenum was normal to the 2nd portion. The scope was retroflexed within the stomach and there was a small hiatal hernia. No ulcers, or gastritis. The scope was withdrawn into the esophagus the Z line was seen at 40 cm from the incisions. There was no Barnhart's esophagitis, esophageal masses or strictures. Biopsy of the GE junction was performed with forceps. Stomach was desufflated and scope removed. Patient tolerated procedure well. Specimen(s): other (GE junction) Complications: none Impression: Small hiatal hernia. Otherwise normal esophagoduodenoscopy Post-procedure Plan for aftercare: Will notify with biopsy Disposition: same day surgery
[2022-06-04 15:28] VITALS: BP 117/62; PULSE 63; RESP 16; TEMP 36.3; O2SAT 98
[2022-06-04 15:33] VITALS: BP 95/56; PULSE 64; RESP 14; O2SAT 98
[2022-06-04 15:38] VITALS: BP 97/55; PULSE 68; RESP 12; O2SAT 94
[2022-06-04 15:45] VITALS: BP 112/62; PULSE 70; RESP 16; TEMP 36.3; O2SAT 99
[2022-06-04 15:49] VITALS: BP 108/53; PULSE 67; RESP 18; TEMP 36.1; O2SAT 99
--- NOTE | 2022-06-04 16:15 | SUR.PHASEII ---
waiting on pt's ride. Pt is stable just awaiting ride.
== END 2022-06-04 16:30 | disposition home or self-care (01) ==
PROVIDERS: PCP Family Medicine; Referring Provider Surgery; Visit Provider Surgery
PROC: 0DJ08ZZ Inspection of Upper Intestinal Tract, Via Natural or Artificial Opening Endoscopic (ICD-10-PCS; CPT 43235; principal; 2022-06-04 15:00)
DX: R93.5 Abnormal findings on diagnostic imaging of other abdominal regions, including retroperitoneum (principal); Z20.822 Contact with and (suspected) exposure to COVID-19; K44.9 Diaphragmatic hernia without obstruction or gangrene
CPT/HCPCS: 43239; 87635; C9803; J2250; J3010

== ENCOUNTER 2022-06-16 01:58 | Emergency (ER) | payer OTHER, SELFPAY ==
[2022-06-16 02:18] VITALS: BP 161/90; PULSE 76; RESP 24; O2SAT 97; BMI 59.4
--- NOTE | 2022-06-16 02:24 | DI.RAD.S_ITS ---
PROCEDURE: XR CHEST 1V INDICATIONS: chest pain TECHNIQUE: One view of the chest was acquired. COMPARISON: [facility], , XR CHEST 1V, 02/28/2020, 1:22. FINDINGS: Surgical changes and devices: None. Lungs and pleura: Lungs are clear. No pleural effusions or pneumothorax. Mediastinum: Mediastinal contours appear normal. Heart size is normal. Bones and chest wall: No suspicious bony lesions. Overlying soft tissues appear unremarkable. IMPRESSION: No acute cardiopulmonary findings Approved by: Vinod Sampson M.D. on 06/16/2022 at 6:28
--- NOTE | 2022-06-16 02:37 | ED.CHESTPAIN ---
HPI - Chest Pain General Chief Complaint: Chest Pain Stated Complaint: LT. SIDE OF ARM NUMB/SOB Time Seen by Provider: 06/16/22 02:19 Source: patient Mode of arrival: Ambulatory History of Present Illness HPI narrative: 41-year-old woman with morbid obesity, recurrent complaints of chest pain with negative workup today, esophageal polyps who presents after being awoken from sleep at 1:00 a.m. this morning with a sensation that she was choking as her neck was being squeezed that she could not swallow she was profusely diaphoretic such that she actually took a shower she was so wet. She was increasingly anxious and noted that she vomited on the way to the emergency department which did not help feeling better. She complains of being lightheaded and she notes over the last week to week and half she has had a sense of general malaise and fatigue generally not feeling good but no specific findings. She did have a standard treadmill test May of 2020 that was unremarkable. She reportedly had a sleep study done and was told that she does not have sleep apnea. Has had previously elevated D-dimer with normal D-dimers in between. She denies headache, palpitations, diarrhea. She notes that she has had multiple abdominal type symptoms thus the recent EGD and scheduled colonoscopy upcoming. She denies recent fevers, cough and no recent COVID symptoms. Related Data Home Medications Medication Instructions Recorded Confirmed cholecalciferol (vitamin D3) 125 5,000 unit PO DAILY ##0 11/14/17 05/31/22 mcg (5,000 unit) capsule Allergies Allergy/AdvReac Type Severity Reaction Status Date / Time From DEMEROL Allergy Unknown Uncoded 05/31/22 09:58 Review of Systems Review of Systems Narrative: Remainder of complete review of systems is otherwise unremarkable except for that included in the HPI. Patient History Medical History Diabetes FH: cholecystectomy (~2003) Surgical History Hx of appendectomy (~1993) Family History Grandmother Pancreatic cancer Breast cancer Mother Diabetes mellitus Gallstones Grandfather Heart disease Social History household members: children and none Smoking Status: Never smoker alcohol intake: current substance use type: does not use eating out: 4 or more times/week Type(s) of exercise: weight lifting, resistance training and other Smoking Status: Never smoker alcohol intake frequency: a few times a month Substance Use Type: does not use Exam Initial Vital Signs Initial Vital Signs: Vital Signs Pulse Rate 76 06/16/22 02:18 Respiratory Rate 24 06/16/22 02:18 Blood Pressure 161/90 H 06/16/22 02:18 Pulse Oximetry 97 06/16/22 02:18 Oxygen Delivery Method 06/16/22 02:18 General: Healthy appearing, anxious but in no acute distress. Able to give a complete and coherent history. Well-nourished well-developed HEENT: Moist mucous membranes, normal sclera with reactive pupils, Neck: No JVD, supple Respiratory: Lungs are clear to auscultation, no wheezing no rales no rhonchi. Full and symmetrical air movement Cardiac: Regular rate and rhythm no murmurs no bruits Abdomen: Soft, nontender, good bowel tones, no flank pain Skin: Warm and dry, no rashes Neurologic: Grossly neurologically intact with no obvious asymmetries or abnormalities Extremities: No trauma, well perfused Psych: Cooperative, appropriate insight and affect Course Orders Ordered: ED Orders 06/16/22 02:15 Complete Blood Count AUTO DIFF Stat Comprehensive Metabolic Panel Stat Lipase Stat Magnesium Stat Troponin & CK Cardiac Panel Stat 06/16/22 02:24 XR chest 1V Stat EKG-12 Lead Stat 06/16/22 04:25 Trop I [Troponin I] Stat Vital Signs Vital signs: Vital Signs - 8 hr 06/16/22 02:18 06/16/22 04:52 Pulse Rate 76 52 L Respiratory Rate 24 13 Blood Pressure 161/90 H Pulse Oximetry 97 98 Oxygen Delivery Method Room Air MDM - Chest Pain Lab Data Result diagrams: 06/16/22 02:15 06/16/22 02:15 Labs: Lab Results 06/16/22 06/16/22 06/16/22 Range/Units 02:15 02:15 04:25 WBC 15.7 H (4.5-11.0) X10^3/uL RBC 4.57 (4.0-5.2) X10^6/uL Hgb 13.3 (12.0-16.0) g/dL Hct 39.3 (36-46) % MCV 85.9 (80-100) fL MCH 29.2 (26-34) PG MCHC 34.0 (30-36) % RDW 13.3 (11.6-14.8) % Plt Count 326 (150-400) X10^3/uL Neut % (Auto) 50.3 (50-75) % Lymph % (Auto) 42.3 H (25-40) % [place] % (Auto) 4.9 (3-14) % Eos % (Auto) 1.7 L (2-4) % Baso % (Auto) 0.8 (0-2) % Neut # (Auto) 7900 H (3360-9778) /uL Lymph # (Auto) 6600 H (3061-1677) /uL [place] # (Auto) 800 (0-900) /uL Eos # (Auto) 300 (0-450) /uL Baso # (Auto) 100 (0-100) /uL Sodium 137 (137-145) mmol/L Potassium 3.9 (3.4-5.1) mmol/L Chloride 100 (98-107) mmol/L Carbon Dioxide 29 (22-32) mmol/L BUN 11 (7-17) mg/dL Creatinine 0.75 (0.52-1.04) mg/dL Estimated GFR > 60 (>60) mL/min BUN/Creatinine Ratio 14.7 (6-22) Glucose 120 H (70-100) mg/dL Calcium 8.9 (8.4-10.2) mg/dL Magnesium 1.9 (1.6-2.3) mg/dL Total Bilirubin 0.4 (0.2-1.3) mg/dL AST 26 (14-36) IU/L ALT 34 (<35) IU/L Alkaline Phosphatase 84 (38-126) U/L Total Creatine Kinase 49 (30-135) U/L CK-MB (CK-2) TNP CK-MB (CK-2) Rel Index TNP Troponin I < 0.012 < 0.012 (0.01-0.034) ng/mL Total Protein 7.2 (6.3-8.2) g/dL Albumin 4.0 (3.5-5.0) g/dL Globulin 3.2 (1.7-4.1) g/dL Albumin/Globulin Ratio 1.3 (1.0-2.8) Lipase 35 (23-300) U/L ECG Data Interpretation: Sinus rhythm at a rate of 84 Occasional PVC Normal intervals, normal axis No acute ischemic changes MDM Narrative Medical decision making narrative: 41-year-old woman with throat tightness and a sense of being unable to breathe awaking her from sleep with profuse diaphoresis at 1:00 a.m. this morning. Initial cardiac workup is negative. Will repeat troponin 2 hours after arrival. She is not tachycardic nor hypoxic and does not note any lower extremity asymmetric edema and risk for pulmonary embolism is low. Chest x-ray is unremarkable. If 2nd troponin remains unremarkable I believe she will be safe for home discharge. Will need follow-up with her primary care physician and may be appropriate to schedule for a nuclear medicine stress test and repeating sleep study as she certainly has the appropriate body habitus as well as symptoms from description that could well be sleep apnea. Discharge Plan Departure Patient Disposition: Home Clinical Impression: Acute dyspnea, Diaphoresis Instructions: DI for Atypical Chest Pain Activity Restrictions/Additional Instructions: Thank you for coming in today Waking up feeling like you are choking is quite frightening. Your workup today was actually reassuring. There is no evidence of acute heart attack, pneumonia, blood clots in your lungs, collapsed lungs or other infection. Please schedule appointment with your primary care physician. It may be appropriate to do the next level of outpatient cardiac testing. You did a regular stress test and may be appropriate at this time to do a nuclear medicine stress test. Your doctor may also want to reconsider additional sleep studies. If you find that you are getting worse or develop any new symptoms, please feel free to return to the emergency department for further evaluation. Prescriptions: No Action cholecalciferol (vitamin D3) 5,000 UNIT capsule 5,000 unit PO DAILY Qty: 0 Referrals: Enedina Conrad MD [Primary Care Provider] -
[2022-06-16 02:38] LABS: Add Manual Diff / Slide Review NO; Basophils Absolute Auto 100 /uL (0-100); Basophils Percent Auto 0.8 % (0-2); Eosinophils Absolute Auto 300 /uL (0-450); Eosinophils Percent Auto 1.7 % (2-4); Hematocrit 39.3 % (36-46); Hemoglobin 13.3 g/dL (12.0-16.0); Lymphocytes Absolute Auto 6600 /uL (1100-4500); Lymphocytes Percent Auto 42.3 % (25-40); Mean Corpuscular Hemoglobin 29.2 PG (26-34); Mean Corpuscular Volume 85.9 fL (80-100); Monocytes Absolute Auto 800 /uL (0-900); Monocytes Percent Auto 4.9 % (3-14); Neutrophils Absolute Auto 7900 /uL (1500-7000); Neutrophils Percent Auto 50.3 % (50-75); Platelet Count 326 X10^3/uL (150-400); Red Blood Cell Count 4.57 X10^6/uL (4.0-5.2); Red Cell Distribution Width 13.3 % (11.6-14.8); White Blood Cell Count 15.7 X10^3/uL (4.5-11.0)
[2022-06-16 02:39] LABS: Alanine Aminotransferase 34 IU/L (<35); Albumin Globulin Ratio 1.3 (1.0-2.8); Alkaline Phosphatase 84 U/L (38-126); Aspartate Aminotransferase 26 IU/L (14-36); BUN Creatinine Ratio 14.7 (6-22); Bilirubin Total 0.4 mg/dL (0.2-1.3); Blood Urea Nitrogen 11 mg/dL (7-17); Calcium 8.9 mg/dL (8.4-10.2); Carbon Dioxide 29 mmol/L (22-32); Chloride 100 mmol/L (98-107); Creatine Kinase 49 U/L (30-135); Estimated Glomerular Filt Rate > 60 mL/min (>60); Globulin 3.2 g/dL (1.7-4.1); Glucose 120 mg/dL (70-100); HEMOLYSIS < 15 (0-50); Lipase 35 U/L (23-300); Magnesium 1.9 mg/dL (1.6-2.3); Potassium 3.9 mmol/L (3.4-5.1); Sodium 137 mmol/L (137-145); Total Protein 7.2 g/dL (6.3-8.2)
[2022-06-16 02:50] LABS: Troponin I < 0.012 ng/mL (0.01-0.034)
[2022-06-16 04:52] VITALS: PULSE 52; RESP 13; O2SAT 98
[2022-06-16 04:54] LABS: Troponin I < 0.012 ng/mL (0.01-0.034)
[2022-06-16 05:00] VITALS: PULSE 67; RESP 17; O2SAT 99
== END 2022-06-16 05:48 | disposition home or self-care (01) ==
PROVIDERS: Emergency Provider Emergency Medicine; PCP Family Medicine
DX: R06.00 Dyspnea, unspecified (principal); R61 Generalized hyperhidrosis; R07.9 Chest pain, unspecified
CPT/HCPCS: 36415; 71045; 80053; 82550; 83690; 83735; 84484; 85025; 93005; 93010; 99283; 99284

== ENCOUNTER → 2023-04-04 11:06 | Outpatient (CLI) | payer OTHER, SELFPAY ==
--- NOTE | 2023-04-04 11:09 | DI.RAD.S_ITS ---
PROCEDURE: XR HIP W PEL IF DONE LT 2V INDICATIONS: low back pain, pain in left hip TECHNIQUE: AP pelvis with lateral view(s) of the left hip(s). COMPARISON: None. FINDINGS: Bones: No fractures or dislocations. Pelvic ring appears intact. No suspicious bony lesions. There is mild hip joint degeneration. Soft tissues: The visualized bowel gas pattern is normal. No suspicious soft tissue calcifications. IMPRESSION: Mild degenerative joint disease. Dictated by: Saul Wolf M.D. on 04/04/2023 at 16:55 Approved by: Saul Wolf M.D. on 04/04/2023 at 16:56
--- NOTE | 2023-04-04 11:09 | DI.RAD.S_ITS ---
PROCEDURE: XR LUMBAR SPINE 2-3V INDICATIONS: low back pain, pain in left hip TECHNIQUE: 3 views of the lumbar spine were acquired. COMPARISON: [facility], CR, XR HIP W PEL IF DONE LT 2V, 04/04/2023, 11:07. FINDINGS: Bones: 5 [id number] vertebrae are present. There is normal bony alignment. No vertebral body compression fractures. No suspicious bony lesions. Mild degenerative disc disease at T12-L1, L1-L2, L2-L3 and L3-L4. Mild facet arthropathy at L4-L5 and L5-S1. Soft tissues: Overlying bowel gas pattern is normal. No suspicious soft tissue calcifications. Cholecystectomy clips are noted. There is an IUD. IMPRESSION: 1. Mild degenerative disc and facet disease in lumbar spine. Dictated by: Saul Wolf M.D. on 04/04/2023 at 16:53 Approved by: Saul Wolf M.D. on 04/04/2023 at 16:55
== END ==
PROVIDERS: PCP Family Medicine; Referring Provider Registered Nurse; Visit Provider Registered Nurse
DX: M51.35 Other intervertebral disc degeneration, thoracolumbar region (principal); M51.36 Other intervertebral disc degeneration, lumbar region; M47.816 Spondylosis without myelopathy or radiculopathy, lumbar region; M47.817 Spondylosis without myelopathy or radiculopathy, lumbosacral region; M16.12 Unilateral primary osteoarthritis, left hip; M54.50 Low back pain, unspecified; M79.605 Pain in left leg
CPT/HCPCS: 72100; 73502

== ENCOUNTER → 2023-09-30 11:35 | Outpatient (CLI) | payer OTHER, SELFPAY ==
--- NOTE | 2023-09-30 | DI.RAD.S_ITS ---
PROCEDURE: XR HIP W PEL IF DONE LT 2V INDICATIONS: left hip, leg, and knee pain TECHNIQUE: AP pelvis with lateral view(s) of the left hip(s). COMPARISON: [facility], , XR HIP W PEL IF DONE LT 2V, 04/04/2023, 11:07. FINDINGS: Bones: No fractures or dislocations. Pelvic ring appears intact. No suspicious bony lesions. Soft tissues: The visualized bowel gas pattern is normal. No suspicious soft tissue calcifications. IMPRESSION: No acute fracture. No osseous lesion. If symptoms and/or clinical suspicion for pathology persist, further assessment with repeat, or advanced imaging (e.g., CT, MRI, or bone scan) may be helpful for further assessment. Dictated by: Tana Lynne M.D. on 09/30/2023 at 15:12 Approved by: Tana Lynne M.D. on 09/30/2023 at 15:12
== END ==
PROVIDERS: PCP Family Medicine; Referring Provider Family Medicine; Visit Provider Family Medicine
DX: M79.605 Pain in left leg (principal)
CPT/HCPCS: 73502

== ENCOUNTER → 2023-10-09 15:44 | Outpatient (CLI) | payer OTHER, SELFPAY ==
--- NOTE | 2023-10-09 | DI.US.S_ITS ---
PROCEDURE: US PELVIC COMPLETE INDICATIONS: SEVERE PELVIC PAIN, SUDDEN ONSET TECHNIQUE: Real-time scanning was performed of the pelvic organs, with image documentation. Additional endovaginal scanning was necessary due to incomplete visualization of the adnexal and endometrial structures by transabdominal scanning. COMPARISON: [facility], , PELVIC COMPLETE, 11/05/2017, 7:18. FINDINGS: Suboptimal exam secondary to patient body habitus. Uterus: Uterus is anteverted and normal in size at 9.8 x 6.2 cm. The myometrium is heterogeneous. The endometrium is not well seen, obscured by fibroid shadow. Intrauterine device in place within the lower uterine segment and cervix with the and of the IUD approximately 1.3 centimeters from the external cervical os. There is a right anterior submucosal fibroid measuring 1.6 x 1.5 x 1.5 centimeters. Ovaries: The right ovary measures 2.5 x 1.9 x 2.7 cm, with a calculated ovarian volume of 6.7 cc. Suboptimal visualization of the right ovary, unable to see arterial or venous flow. The left ovary is not seen. Other: No pathologic free abdominal or pelvic fluid. IMPRESSION: 1. Suboptimal exam secondary to body habitus. 2. Intrauterine device in place in the lower uterine segment/cervix with the end of the IUD approximately 1.3 centimeters from the external cervical os. 3. Submucosal fibroid measuring 1.6 centimeters. This fibroid shadows the endometrial echo complex which is unable to be evaluated. 4. Right ovary is suboptimally seen and no flow is identified secondary to lack of ultrasound penetration. Torsion cannot definitively be excluded at this time. The left ovary is not seen. We strive to produce accurate, complete, and clear reports of imaging services. To assist us in improving patient care, this report was composed using standard report templates and voice recognition software. Therefore, it may contain abnormal punctuation, insertions and/or omissions. Occasional wrong-word or sound-alike substitutions may occur. Though we review the report and make efforts to correct it, we do recommend that the report be read carefully in proper context to recognize any text inaccuracies. Dictated by: Devon Barker M.D. on 10/09/2023 at 16:29 Approved by: Devon Barker M.D. on 10/09/2023 at 16:35
== END ==
PROVIDERS: PCP Registered Nurse; Referring Provider Registered Nurse; Visit Provider Registered Nurse
DX: D25.0 Submucous leiomyoma of uterus (principal); R10.2 Pelvic and perineal pain; Z97.5 Presence of (intrauterine) contraceptive device
CPT/HCPCS: 76830; 76856

== ENCOUNTER 2023-10-09 16:40 | Emergency (ER) | payer OTHER, SELFPAY ==
[2023-10-09 16:51] VITALS: BP 134/78; PULSE 87; RESP 20; TEMP 36.2; O2SAT 98; BMI 54.9
[2023-10-09] MEDS: KETOROLAC 30 MG/ML VIAL IM (17:14)
--- NOTE | 2023-10-09 18:48 | ED.GENADULT ---
HPI - General Adult General Chief complaint: Vaginal Bleeding Stated complaint: Lamont ref.Pelvic pain/lower back pain/IUD moved? Time Seen by Provider: 10/09/23 18:06 Source: patient Mode of arrival: Ambulatory History of Present Illness HPI narrative: Vaginal bleeding for 2 weeks, low back pain that feels like early labor since October 06 and some chronic back issues with left side radicular pain for which she had a physical therapy appointment today. As pain was worsening she underwent ultrasound was told that her IUD was low spoke with OBGYN was told that she should come into the emergency department to have the IUD removed. For the back pain she is been taking 200 mg of ibuprofen once a day in his find that it is not effective. She was given IM Toradol earlier today and still has quite a bit of low back with radicular pain. She notes that she is been having vaginal bleeding for the last 2 weeks is now mostly brown. At one point she had been having significant menorrhagia for which the Mirena IUD was placed. She is complaining of no fevers, abdominal pain, dysuria, diarrhea, constipation Related Data Home Medications Medication Instructions Recorded Confirmed cholecalciferol (vitamin D3) 125 5,000 unit PO DAILY ##0 11/14/17 05/08/23 mcg (5,000 unit) capsule Allergies Allergy/AdvReac Type Severity Reaction Status Date / Time meperidine [From Demerol] Allergy Unknown Verified 10/09/23 17:10 Opioids - Morphine Analogues AdvReac Verified 10/09/23 16:57 Review of Systems Review of Systems Narrative: Pertinent positive and negative findings as per HPI Patient History Medical History (Updated 10/09/23 @ 19:02 by Tonya Loja MD) Menorrhagia Esophageal mass Diabetes FH: cholecystectomy (~2003) Surgical History Hx of appendectomy (~1993) Family History Grandmother Pancreatic cancer Breast cancer Mother Diabetes mellitus Gallstones Grandfather Heart disease Social History household members: children and none Smoking Status: Never smoker alcohol intake: current substance use type: does not use eating out: 4 or more times/week Type(s) of exercise: weight lifting, resistance training and other Smoking Status: Never smoker alcohol intake frequency: a few times a month Substance Use Type: does not use Exam Initial Vital Signs Initial Vital Signs: Vital Signs Temperature 97.2 F L 10/09/23 16:51 Pulse Rate 87 10/09/23 16:51 Respiratory Rate 20 10/09/23 16:51 Blood Pressure 134/78 10/09/23 16:51 Pulse Oximetry 98 10/09/23 16:51 Oxygen Delivery Method Room Air 10/09/23 16:51 General: Alert appropriate in pain but able to stand up and walk. Respiratory: Able to speak in full sentences, no obvious respiratory distress Skin: No obvious rashes, warm and dry Neurologic: Grossly intact no obvious asymmetries or abnormalities. No weakness, no paresthesias, no abnormalities or decreased sensation to the perineum Psych: appropriate insight and affect, cooperative Pelvic exam: Speculum was placed, IUD is quite low and easily removed with ring forceps. Course Orders Ordered: Discontinued Medications Ketorolac Tromethamine (Ketorolac 30 Mg/Ml Vial) 30 mg IM NOW ONE Stop: 10/09/23 17:06 Last Admin: 10/09/23 17:14 Dose: 30 mg Documented By: OW Vital Signs Vital signs: Vital Signs - 8 hr 10/09/23 16:51 Temperature 97.2 F L Pulse Rate 87 Respiratory Rate 20 Blood Pressure 134/78 Pulse Oximetry 98 Oxygen Delivery Method Room Air Medical Decision Making MDM Narrative Medical decision making narrative: CC: Sent in by OBGYN for removal of IUD Complicating co-morbidities: low back pain with left side radicular pain currently seeing physical therapy. Morbid obesity Data collected from: patient, Medical records reviewed: Prior ER notes for atypical chest pain, exercise stress test in January of 2022 and oncology notes in May of 2023 are all reviewed Differential considered: Cervical cramping secondary to misplaced IUD, low back pain, pelvic inflammatory disease, perirectal abscess, Exam documented above, pertinent findings include: No midline low back pain tenderness or muscle spasm. Normal sensation to perineum. IUD is removed without difficulty Imaging studies independently reviewed: Pelvic ultrasound done earlier today is reviewed shows IUD in the lower uterine segment/cervix, submucosal fibroid 1.6 cm there is a discussion of no flow seen in the right ovary however she has no tenderness in that area and this is likely secondary to ultrasound penetration rather than torsion. Treatments: IM Toradol, IUD removal Discussion: 42-year-old woman with 3 days of increasing low back pain that she describes as similar to contraction pain. Bleeding for the last 2 weeks that is now turning into brown end of cycle discharge type bleeding. Low back pain with left radicular symptoms for which she is seeing physical therapy. The IUD is removed. She was given IM Toradol without all that much relief. She declines any narcotics. We talked about using ibuprofen and Tylenol combination treatment. We also discussed the fact that without her IUD is possible. Also discussed other treatments for her menorrhagia that had bothered her prior to the IUD placement. I encouraged her to continue with physical therapy for the low back pain with radicular symptoms and to follow up with her mortgage closing clerk to discuss options for either replacing the IUD or coming up with a plan B for her heavy vaginal bleeding. At this time she is safe for discharge Discharge Plan Departure Patient Disposition: Home Clinical Impression: Pelvic cramping, Vaginal bleeding, Acute low back pain with radicular symptoms, duration less than 6 weeks Instructions: DI for Menorrhagia Activity Restrictions/Additional Instructions: Thank you for coming in today I am sorry that you are suffering with the back pain as well as the pelvic cramping. Your IUD is out and that should help with the cervical component of your back pain. I would encourage you to continue seeing physical therapy to help with the low back pain and the sciatica down your left leg. With the IUD removed, you could potentially become , please keep this in mind with sexual activity. I would encourage you to follow up with her primary care or OBGYN doctor to talk about additional treatments for your heavy vaginal bleeding. Using 400 mg of ibuprofen (2 [id number] pills) and 1 Tylenol every 6 hours can be very helpful in controlling pain. If you find that you are getting worse or develop any new symptoms, please feel free to return to the emergency department for further evaluation. Prescriptions: No Action cholecalciferol (vitamin D3) 5,000 UNIT capsule 5,000 unit PO DAILY Qty: 0 Referrals: Cristy Miguel ARNP [Primary Care Provider] - Stand Alone Forms: Patient Portal/API
--- NOTE | 2023-10-09 19:11 | PC.NURSE ---
IUD removed by Dr. Loja.
[2023-10-09 19:17] VITALS: BP 120/86; PULSE 68; RESP 16; TEMP 36.6; O2SAT 100
== END 2023-10-09 19:18 | disposition home or self-care (01) ==
PROVIDERS: Emergency Provider Emergency Medicine; PCP Registered Nurse
DX: R10.2 Pelvic and perineal pain (principal); M54.16 Radiculopathy, lumbar region; N93.9 Abnormal uterine and vaginal bleeding, unspecified; D25.0 Submucous leiomyoma of uterus; Z97.5 Presence of (intrauterine) contraceptive device
CPT/HCPCS: 76830; 76856; 96372; 99283; J1885

== ENCOUNTER 2025-03-11 10:57 | Day surgery (SDC) | payer OTHER, SELFPAY ==
[2025-03-11] VITALS (7 sets, daily range): BP systolic 113–139; BP diastolic 68–99; PULSE 69–98; RESP 12–16; TEMP 36.1–37.7; O2SAT 96–100
--- NOTE | 2025-03-11 | PATH_ITS ---
[facility] Accession Number: [id number] No. of containers..01 Tissue . 01 Material submitted: . perianal area - PERIANAL FISTULA . 01 Diagnosis: PERIANAL FISTULA, EXCISION: Squamous mucosa and underlying tissue with chronic inflammation and focal abscess, consistent with fistula tract. No evidence of neoplasm. APRIL 03/15/2025 0554 Local . 01 Electronically signed: . Dung Fuller MD, PhD, Pathologist NPI- [id number] . 01 Gross description: . Received in formalin with two identifiers and perianal fistula, are multiple fragments of yellow to robles soft tissue with cautery artifact aggregating to 3.9 x 3.7 x 1.1 cm. A fragment of possible mucosa is identified 0.8 x 0.8 cm. Sectioning reveals a possible fistula tract adjacent to the aforementioned presumed mucosa. The remaining cut surface is yellow to white soft tissue. Shirt Maker sections are submitted in cassette A1. ([id number]) /APRIL 03/13/2025 0448 Local . 01 Pathologist provided ICD-10: K60.30 . 01 CPT . 531689 Specimen Comment: A courtesy copy of this report has been sent to [facility] Pathology Performed at: [address] [facility], [place], [place] [id number] MD Oskar Villar MD Phone: [phone]
[2025-03-11] MEDS: LACTATED RINGERS 1,000 ML 100 ML IV (11:15)
--- NOTE | 2025-03-11 12:36 | PM.PREOP ---
Pre-operative Note Interval Note History & Physical reviewed/Exam performed by Physician: Yes Changes to H&P: No
--- NOTE | 2025-03-11 13:46 | SUR.OPER ---
Lithotomy on padded OR bed, head on pillow, arms secured on padded arm boards at <90 degrees abduction. Legs secured in padded yellow fins stirrups.
[2025-03-11] MEDS: BUPIVACAINE LIPOSOME 266 MG/20 ML VIAL INJ (13:56)
[2025-03-11] MEDS: BUPIVACAINE 0.25% W/ EPI 30 ML VIAL INJ (13:56)
--- NOTE | 2025-03-11 14:21 | PM.OP.1 ---
Operative Date/Time/Diagnoses Date of procedure: 03/11/25 Time of procedure: 14:21 Pre-op diagnosis: Perianal fistula Post-op diagnosis: same (Perianal fistula and suspect also hidradenitis) Procedure & Clinicians Procedure: 1. Colonoscopy 2. Rectal exam under anesthesia with seton placement and perianal fistula and excision of fistulous tract Same procedure as scheduled: Yes Indications: Perianal fistula, diarrhea Surgeon: Hernan Barcenas Click Yes if Unassisted: Yes Anesthesia Type: General Operative Notes Findings: A left-sided area near the perineum that appeared to be hidradenitis, but also a left-sided area closer to the anus that did communicate as a transsphincteric fistula Closure Type: not applicable Specimen(s): other (Perianal fistula) Prosthetic devices, grafts, tissues, transplants, or devices: Seton (red vessel loop) Estimated Blood Loss (mL): 5 Procedure in detail: Time-out was performed. General anesthesia was induced. Patient was placed in modified Himanshu Kilgore position. The perineum was inspected without any gross abnormality. Lubricated pediatric colonoscope was inserted and advanced to the cecum. The terminal ileum was intubated. The colonoscope was withdrawn slowly inspecting the circumference of the colon. Very small polyps may have been missed, prep quality was adequate. Retroflexed view of the rectum showed small, non prolapsed nonbleeding internal hemorrhoids. There was no evidence of Crohn's disease, ulcerative colitis or significant intra rectal disease The scope was withdrawn and attention was turned to the rectal exam under anesthesia. 40 mL of 0.25% Marcaine mixed with Exparel was infiltrated as a perianal block. Lubricated anoscope was inserted. The lacrimal duct probes were inserted through the perianal fistula which was tracking transsphincteric a red vessel loop was placed through this fistula, tied to itself and silk sutures tied into place. Bovie electrocautery was used to excise the fistula tract. There was a separate area that looked more like hidradenitis than a fistula approximately 4 cm away more on the anterior perineal side than on the anal side, but also on the left side which was excised completely. Both these areas were packed with iodoform gauze. The patient was taken to PACU in good condition. Complications: none Post-operative Condition: stable Disposition: PACU Plan for aftercare: home
== END 2025-03-11 16:26 | disposition home or self-care (01) ==
PROVIDERS: PCP Family Medicine; Referring Provider Family Medicine; Visit Provider Surgery
PROC: 0DJD8ZZ Inspection of Lower Intestinal Tract, Via Natural or Artificial Opening Endoscopic (ICD-10-PCS; CPT 45378; principal; 2025-03-11 12:30)
PROC: (CPT 45990; 2025-03-11 12:30)
DX: K52.9 Noninfective gastroenteritis and colitis, unspecified (principal); K60.30 Anal fistula, unspecified; K64.8 Other hemorrhoids
CPT/HCPCS: 46280; 45378; 81025; J0330; J0666; J1100; J1885; J2405; J2704; J3010

== ENCOUNTER → 2025-09-12 10:38 | Outpatient (CLI) | payer OTHER, SELFPAY ==
--- NOTE | 2025-09-12 10:39 | DI.MRI.S_ITS ---
PROCEDURE: MR HIP LT WO CON INDICATIONS: Chronic left hip pain TECHNIQUE: Noncontrast coronal T1 spin echo and STIR through the bony pelvis. Coronal and axial T2 fast spin echo with fat saturation, sagittal T1 spin echo, and oblique axial T2 fast spin echo with fat saturation through the hip. COMPARISON: None. FINDINGS: Image quality: Excellent. Bones and joints: Marrow signal of the visualized lower lumbar spine, the sacrum, and the bilateral sacroiliac joints are unremarkable. Mild degenerative changes of bilateral hips. No acute fracture or dislocation of either hip. No avascular necrosis of either femoral head. Tendons and ligaments: Moderate complex iliopsoas bursitis. The adductor muscles and tendons unremarkable. The left hamstring tendon is unremarkable. Low-grade tear of the left gluteal minimus, at the greater trochanteric insertion. The left gluteal medius tendon is unremarkable. Labrum and cartilage: Circumferential labral tear of the left hip with 4 mm paralabral cyst about the anterior superior labrum. Soft tissues: Multiple uterine fibroid. Soft tissue edema about bilateral ischial tuberosity, nonspecific. Labral tear of the right hip with with paralabral cyst about the anterior superior labrum measuring up to 1.3 cm, incompletely evaluated. IMPRESSION: 1. Mild degenerative changes of bilateral hips with labral tear and paralabral cyst. 2. Moderate complex left iliopsoas bursitis, progressed. 3. Low-grade tear of the left gluteal minimus tendon. 4. Soft tissue edema about bilateral ischial tuberosity, nonspecific. Dictated by: Kelly Nye M.D. on 09/12/2025 at 15:03 Approved by: Kelly Nye M.D. on 09/12/2025 at 15:11
== END ==
LOC: MRI 10:38
PROVIDERS: PCP Family Medicine; Referring Provider Family Medicine; Visit Provider Family Medicine
DX: S73.192A Other sprain of left hip, initial encounter (principal); S76.012A Strain of muscle, fascia and tendon of left hip, initial encounter; M70.72 Other bursitis of hip, left hip; R60.0 Localized edema; G89.29 Other chronic pain; M25.552 Pain in left hip
CPT/HCPCS: 73721